=== PATIENT | male | born 1970 | race Caucasian/White ===

== ENCOUNTER 2019-01-19 12:27 | Emergency (ER) | payer BC ==
[~2019-01-19] VITALS: Ht 160 cm; Wt 76.6 kg
[~2019-01-19 12:27] MED LIST: CYCL10TA7 PO; HYDR-4011 PO; IBUP800T48 PO
[2019-01-19 12:48] VITALS: Ht 160 cm; Wt 76.6 kg
[2019-01-19] MEDS ORDERED: KETOROLAC 30 MG INJ IM STA (13:12)
[2019-01-19] MEDS ORDERED: HYDROCODONE/APAP (5/325) TAB PO ONE (13:30)
--- NOTE | 2019-01-19 14:03 | ERD ---
ER Documentation Chief Complaint Chief Complaint back pain HPI 48-year-old male presents with back pain that he has had since a work injury that occurred on December 23. He said once a day x-ray at that time which was negative but continues to have pain and now the pain is beginning to shoot down his right lower extremity. No bowel or bladder incontinence or saddle anesthesia. He takes Motrin at home but does not help. No fevers. No dysuria hematuria frequency. No flank pain. ROS All systems reviewed and are negative except as per history of present illness. Medications Home Meds Active Scripts Hydrocodone/Acetaminophen (Hargill 5-325 Tablet) 1 Each Tablet, 1 TAB PO Q6H PRN for PAIN, #15 TAB Prov:RENATA HART PA-C 01/19/19 Ibuprofen* (Motrin*) 800 Mg Tab, 800 MG PO Q6, #30 TAB Prov:RENATA HART PA-C 01/19/19 Cyclobenzaprine Hcl* (Cyclobenzaprine Hcl*) 10 Mg Tablet, 10 MG PO BID, #15 TAB Prov:RENATA HART PA-C 01/19/19 Reported Medications [None] No Conflict Check 02/13/10 Allergies Allergies: Coded Allergies: No Known Drug Allergy (Verified Allergy, Mild, 01/19/19) PMhx/Soc Medical and Surgical Hx: pt denies Medical Hx, pt denies Surgical Hx History of Surgery: No Anesthesia Reaction: No Hx Neurological Disorder: No Hx Psychiatric Problems: No Hx Miscellaneous Medical Probl: No Hx Alcohol Use: Yes (OCCASSIONALLY) Hx Substance Use: No (DENIES) Hx Tobacco Use: Yes (OCCASSIONALLY) Smoking Status: Current some day smoker FmHx Family History: No diabetes Physical Exam Vitals Vital Signs Date Temp Pulse Resp B/P (MAP) Pulse Ox O2 O2 Flow FiO2 Time Delivery Rate 01/19/19 98.8 98 20 162/92 98 12:48 (115) Physical Exam Const: No acute distress Head: Atraumatic Eyes: Normal Conjunctiva ENT: Normal External Ears, Nose and Mouth. Neck: Full range of motion. No meningismus. Resp: Clear to auscultation bilaterally Cardio: Regular rate and rhythm, no murmurs Abd: Soft, non tender, non distended. Back Exam: Compartments: Soft Motor: Normal flexion and extension of bilateral hip/knee/ankle/foot Sensation: Intact to light touch throughout Bones: No midline TTP Results 24 hrs Current Medications Medications Dose Sig/Brunilda Start Time Status Last (Trade) Ordered Route PRN Stop Time Admin Dose Reason Admin Ketorolac 30 mg ONCE STAT 01/19/19 DC 01/19/19 Tromethamine IM 13:12 13:18 (Toradol) 01/19/19 13:14 1 tab ONCE ONCE 01/19/19 DC 01/19/19 Acetaminophen PO 13:30 13:17 / 01/19/19 13:31 Hydrocodone Bitart (Hargill (5/325)) Procedures/MDM 48-year-old male presents with back pain. The differential diagnosis includes but is not limited to muscle strain, ligament strain, contusion, arthritis, discogenetic disease, non-musculoskeletal, cauda equina syndrome, cord compression, abscess and others. He was given Toradol and Hargill. X-ray repeated which shows mild enthesopathy. He was given a copy of the results as well as prescription for ibuprofen Flexeril and Hargill. He was given outpatient orthopedic follow-up. Patient counseled regarding my diagnostic impression and care plan. Prior to discharge all questions answered. Pt agrees with treatment plan and understands strict return precautions. Pt is instructed to follow up with primary care provider within 24-48 hours. Precautionary instructions provided including instructions to return to the ER if not improving or for any worsening or changing symptoms or concerns. Departure Diagnosis: Primary Impression: Back pain Condition: Stable Patient Instructions: Back Pain (Acute Or Chronic) Referrals: [facility] Hours: Wed-Wed 9:00 AM - 5:00 PM Additional Instructions: Call your primary care doctor TOMORROW for an appointment during the next 1-2 days.See the doctor sooner or return here if your condition worsens before your appointment time. RENATA HART PA-C Jan 19, 2019 14:03
[2019-01-19 14:23] VITALS: BP 155/103; PULSE 88; RESP 18
== END 2019-01-19 14:24 | disposition home or self-care (01) ==
LOC: FTE 12:27
DX: M54.9 Dorsalgia, unspecified (principal); F17.210 Nicotine dependence, cigarettes, uncomplicated
CPT/HCPCS: 72100; 96372; 99284; J1885